=== PATIENT | female | born 1935 | race Caucasian/White ===

== ENCOUNTER 2020-10-20 09:48 | Outpatient (CLI) | payer OTHER | END 2020-10-20 09:58 | disposition home or self-care (01) | LOC: RX STUDY 09:48 | PROVIDERS: ATTEND Internal Medicine Gastroenterology | DX: R10.13 Epigastric pain (principal) ==

== ENCOUNTER 2020-10-30 07:09 | Outpatient (CLI) | payer OTHER | END 2020-10-30 07:14 | disposition home or self-care (01) | LOC: TOM 07:09 | PROVIDERS: ATTEND Internal Medicine Gastroenterology | DX: Z12.11 Encounter for screening for malignant neoplasm of colon (principal); K44.9 Diaphragmatic hernia without obstruction or gangrene ==

== ENCOUNTER 2021-01-25 20:17 | Emergency (ER) | payer OTHER ==
[~2021-01-25] VITALS: Ht 162.6 cm; Wt 52.2 kg
[2021-01-25] MEDS ORDERED: METFORMIN HCL500 MG (20:26)
[2021-01-25] MEDS ORDERED: ZOCOR20 MG (20:27)
[2021-01-25] MEDS ORDERED: NEURONTIN300 MG (20:27)
[2021-01-25] MEDS ORDERED: ALTACE2.5 MG (20:27)
[2021-01-25] MEDS ORDERED: TIROSINT25 MCG (20:27)
[2021-01-25] MEDS ORDERED: FOLIC ACID0.8 M1 (20:28)
[2021-01-25] MEDS ORDERED: ABANEU-SL TABL1 EACH (20:28)
[2021-01-25] MEDS ORDERED: CARAFATE1 GM PO (22:49)
== END 2021-01-25 22:52 | disposition home or self-care (01) ==
LOC: ER 20:17 → EDBD 20:21 → ER 22:52
DX: K29.70 Gastritis, unspecified, without bleeding (principal)

== ENCOUNTER 2021-02-09 10:45 | Inpatient (IN) | payer OTHER ==
[~2021-02-09] VITALS: Ht 149.9 cm; Wt 52.2 kg
[~2021-02-09 10:45] MED LIST: ABANEU-SL TABL1 EACH; ALTACE2.5 MG; CARAFATE1 GM PO; FOLIC ACID0.8 M1; METFORMIN HCL500 MG; NEURONTIN300 MG; TIROSINT25 MCG; ZOCOR20 MG
[2021-02-12] MEDS ORDERED: PANTOPRAZOLE SO40 MG (08:12)
[2021-02-12] MEDS ORDERED: METFORMIN HCL1000 M3 (08:12)
[2021-02-12] MEDS ORDERED: AMITRIPTYLINE H50 MG (08:13)
[2021-02-12] MEDS ORDERED: PREDNISOLONE ACE5 ML (08:13)
[2021-02-12] MEDS ORDERED: REFRESH RELIEVA10 ML (08:13)
[2021-02-12] MEDS ORDERED: FAMOTIDINE40 MG (08:13)
[2021-02-12] MEDS ORDERED: KETOROLAC TROMET5 ML (08:13)
[2021-02-13] MEDS ORDERED: HYOSCYAMINE0.125 M1 SL (11:50)
[2021-02-13] MEDS ORDERED: OXYC1TAB9 PO (11:51)
[2021-02-13] MEDS ORDERED: INTESTINEX680 M1 PO (11:51)
== END 2021-02-13 14:29 | disposition home or self-care (01) | DRG 330 ==
LOC: SURH 02-11 05:45 → O/R 02-11 05:45 → SURH 02-11 09:00 → EDBD 02-11 10:45 → SURH 02-11 11:49
PROVIDERS: ADMIT Surgery; ATTEND Surgery
PROC: 07BD4ZX Excision of Aortic Lymphatic, Percutaneous Endoscopic Approach, Diagnostic (ICD-10-PCS; 2021-02-11)
PROC: 3E0F7SF Introduction of Other Gas into Respiratory Tract, Via Natural or Artificial Opening (ICD-10-PCS; 2021-02-11)
PROC: 0DTF4ZZ Resection of Right Large Intestine, Percutaneous Endoscopic Approach (ICD-10-PCS; principal; 2021-02-11 09:00)
DX: C18.2 Malignant neoplasm of ascending colon (principal); K92.1 Melena; R59.0 Localized enlarged lymph nodes